=== PATIENT | male | born 1945 | race Caucasian/White ===

== ENCOUNTER 2016-07-22 11:22 | Observation (INO) | payer MEDICARE, OTHER ==
[~2016-07-22] VITALS: Ht 182.9 cm; Wt 84.1 kg
[~2016-07-22 11:22] MED LIST: ALDACTONE100 MG PO; BETAPACE80 MG PO; CARDIZEM CD120 MG PO; COLACE100 MG PO; FLOMAX0.4 MG PO; FOLIC ACID1 MG PO; FOLVITE-DPS1 MG PO; KLOR-CON20 MEQ PO; LASIX40 M1 PO; LYRICA50 MG PO; MAALOX DPS30 ML PO; MAGNESIUM400 MG PO; MULTIVITAMINS1 EAC1 PO; NITROSTAT0.4 MG SL; OCEAN NASAL MIS45 ML IH; SURFAK240 MG PO; TIKOSYN125 MCG PO; TYLENOL DPS325 MG PO; VITAMIN B1100 MG PO; XANAX0.5 MG PO; XARELTO20 MG PO
--- NOTE | 2016-07-23 16:41 | ER ---
ADMIT: 07/22/2016 RM/LOC: 420 [facility] MR#: [id number] [address] [address] DAYRON ESCAMILLA [address] [place] [address] Emergency Room Report SEX: M AGE: 70 : 1945 DATE: 07/22/2016 ADDENDUM: A 70-year-old white male coming in with palpitations. He has known history of atrial fibrillation with rapid rate. He seemed to be in that when he came in, really minimal complaints. I think he also had ablation. Dr. Shah also had come in to see him since he had an ablation through [facility] and the electroradiologist had wanted to see him today anyway. So at this time, Dr. Pablo delatorre will admit. Initial lab; blood work looked okay. This gentleman also has history of pancreatic cancer, status post Whipple about a month ago. He had been doing fine throughout this. CONDITION ON ADMISSION: Fair. Chinatn Costa MD/ kevin JOB #: [id number] CC: Pasquale Burr MD, Attending Physician Pasquale Burr MD, Family Physician
[2016-07-24] MEDS ORDERED: CALCIUM 600 +1 EA16 PO (19:11)
[2016-07-24] MEDS ORDERED: ASPIR 8181 MG PO (19:12)
[2016-07-24] MEDS ORDERED: NASADROPS15 ML NS (19:13)
[2016-10-15] MEDS ORDERED: FEOSOL-DPS325 MG PO (12:06)
[2016-10-15] MEDS ORDERED: LASIX DPS40 MG PO (12:07)
[2016-10-15] MEDS ORDERED: LOPRESSOR DPS50 MG PO (12:07)
[2016-10-15] MEDS ORDERED: CRESTOR10 MG PO (12:07)
[2016-10-15] MEDS ORDERED: LEXAPRO10 MG PO (12:07)
[2016-10-15] MEDS ORDERED: KLOR-CON M2020 ME1 PO (12:08)
[2016-10-15] MEDS ORDERED: TYLENOL DPS325 MG PO (12:08)
[2016-10-15] MEDS ORDERED: VITAMIN B12-FO1 EACH IM (12:08)
[2016-10-15] MEDS ORDERED: NEXIUM40 MG PO (12:08)
[2016-10-15] MEDS ORDERED: MAALOX DPS30 ML PO (12:09)
[2016-10-15] MEDS ORDERED: LACTULOSE20 GM/30 M PO (12:09)
[2016-10-15] MEDS ORDERED: NITROSTAT0.4 MG SL (12:10)
[2016-10-15] MEDS ORDERED: LANOXIN DPS0.125 MG PO (12:10)
[2016-10-15] MEDS ORDERED: TUMS DPS500 MG PO (12:11)
[2016-10-15] MEDS ORDERED: MIRALAX PACKET17 GM PO (12:11)
[2016-10-15] MEDS ORDERED: ULTRAM DPS50 MG PO (12:11)
[2016-10-15] MEDS ORDERED: MILK OF MAGNESI10 ML PO (12:11)
[2016-10-15] MEDS ORDERED: PRO-AMATINE2.5 MG PO (12:11)
== END 2016-07-23 13:35 | disposition home or self-care (01) ==
LOC: ER 11:22 → 4PCU 12:44
PROVIDERS: ADMIT Internal Medicine
DX: I48.4 Atypical atrial flutter (principal); C25.9 Malignant neoplasm of pancreas, unspecified; I25.10 Atherosclerotic heart disease of native coronary artery without angina pectoris; I25.5 Ischemic cardiomyopathy; I48.0 Paroxysmal atrial fibrillation; I47.2 Ventricular tachycardia; J44.9 Chronic obstructive pulmonary disease, unspecified; Z79.899 Other long term (current) drug therapy; Z79.82 Long term (current) use of aspirin; Z88.8 Allergy status to other drugs, medicaments and biological substances; Z98.890 Other specified postprocedural states; Z87.891 Personal history of nicotine dependence

== ENCOUNTER 2016-07-28 06:15 | Day surgery (SDC) | payer MEDICARE, OTHER ==
[~2016-07-28] VITALS: Ht 182.9 cm; Wt 88.1 kg
[~2016-07-28 06:15] MED LIST changes: +ASPIR 8181 MG PO; +CALCIUM 600 +1 EA16 PO; +NASADROPS15 ML NS
--- NOTE | 2016-08-10 08:53 | OR ---
ADMIT: 07/28/2016 RM/LOC: [facility] MR#: [id number] [address] [address] DAYRON ESCAMILLA [address] [place] [address] Operative/Delivery Room Report SEX: M AGE: 70 : 1945 SURGERY DATE: 07/28/2016 SURGEON: Pietro Rose MD PREPROCEDURE DIAGNOSIS: Pancreatic cancer. POSTPROCEDURE DIAGNOSIS: Pancreatic cancer. PROCEDURE: Left subclavian vein power port placement. INDICATIONS: The patient is a 70-year-old with pancreatic cancer presents for PowerPort placement for adjuvant chemotherapy. FINDINGS: Patient taken to the operating room, IV sedation was given. The chest and neck were prepped and draped in normal sterile fashion. The case was begun by injecting 1% lidocaine for local analgesia. An introducer needle was placed in a left subclavian vein, a wire was threaded under fluoroscopic guidance into the right ventricle. An Pwyjmi-V-Eeeg pocket was made with a #15 blade cautery and blunt finger dissection. A dilator and sheath were placed over a wire. Our catheter was cut to 18 cm and assembled. Catheter was then threaded through our sheath. Unfortunately catheter was heading into the opposite subclavian vein. I replaced the wire, cut about a 22 cm length catheter, used a replacement dilator sheath and unfortunately I was not able to work with my catheter and slid it back into the right atrium. So we got another kit, replaced our wire through our catheter. Cut our catheter 20 cm, reassembled, placed a dilator sheath over our a wire, threaded our catheter through our sheath under fluoroscopic guidance with the tip heading towards the right atrium into the mid subclavian vein. The catheter aspirated and flushed without difficulty, then was flushed with heparinized saline. The port was sutured to the pectoral fascia using 2-0 Prolene suture. The incision site was closed with interrupted 3-0 Vicryl subdermal sutures and running 4-0 Vicryl subcuticular skin stitch. The wound was cleaned and dried and dressed. Patient tolerated the procedure without difficulty, transferred to the recovery room in good condition. Pietro Rose MD/ kevin JOB #: [id number] CC: Pietro Rose, Attending Physician Jh Massey, Family Physician
[2016-10-15] MEDS ORDERED: FEOSOL-DPS325 MG PO (12:06)
[2016-10-15] MEDS ORDERED: LASIX DPS40 MG PO (12:07)
[2016-10-15] MEDS ORDERED: LEXAPRO10 MG PO (12:07)
[2016-10-15] MEDS ORDERED: LOPRESSOR DPS50 MG PO (12:07)
[2016-10-15] MEDS ORDERED: CRESTOR10 MG PO (12:07)
[2016-10-15] MEDS ORDERED: KLOR-CON M2020 ME1 PO (12:08)
[2016-10-15] MEDS ORDERED: TYLENOL DPS325 MG PO (12:08)
[2016-10-15] MEDS ORDERED: VITAMIN B12-FO1 EACH IM (12:08)
[2016-10-15] MEDS ORDERED: NEXIUM40 MG PO (12:08)
[2016-10-15] MEDS ORDERED: MAALOX DPS30 ML PO (12:09)
[2016-10-15] MEDS ORDERED: LACTULOSE20 GM/30 M PO (12:09)
[2016-10-15] MEDS ORDERED: LANOXIN DPS0.125 MG PO (12:10)
[2016-10-15] MEDS ORDERED: NITROSTAT0.4 MG SL (12:10)
[2016-10-15] MEDS ORDERED: PRO-AMATINE2.5 MG PO (12:11)
[2016-10-15] MEDS ORDERED: MILK OF MAGNESI10 ML PO (12:11)
[2016-10-15] MEDS ORDERED: MIRALAX PACKET17 GM PO (12:11)
[2016-10-15] MEDS ORDERED: ULTRAM DPS50 MG PO (12:11)
[2016-10-15] MEDS ORDERED: TUMS DPS500 MG PO (12:11)
== END 2016-07-28 10:55 | disposition home or self-care (01) ==
LOC: SSS 06:15
DX: C25.9 Malignant neoplasm of pancreas, unspecified (principal); I25.10 Atherosclerotic heart disease of native coronary artery without angina pectoris; I48.91 Unspecified atrial fibrillation; K21.9 Gastro-esophageal reflux disease without esophagitis; E78.00 Pure hypercholesterolemia, unspecified; Z87.891 Personal history of nicotine dependence; Z79.899 Other long term (current) drug therapy; Z98.890 Other specified postprocedural states; Z79.82 Long term (current) use of aspirin

== ENCOUNTER 2016-08-10 11:45 | Emergency (ER) | payer MEDICARE, OTHER ==
--- NOTE | 2016-08-26 15:23 | ER ---
ADMIT: 08/10/2016 RM/LOC: ER [facility] MR#: [id number] 2620 [facility] [address] [place] [phone] DAYRON ESCAMILLA [address] [place] [address] Emergency Room Report SEX: M AGE: 70 : 1945 DATE: 08/10/2016 ADDENDUM: A 70-year-old white male coming in with rapid heart rate. He has problems with paroxysmal atrial fibrillation, I think SVT, and ischemic cardiomyopathy. Also, has some atherosclerotic disease as well. He continues to kind of have problems with this. We tried to initially convert him with Adenocard because he looked like he actually was in SVT. That did not work. Finally gave him Cardizem, titrated him, then gave him 240 of Cardizem and he had rate control of like 79-83. He does have an occasional PVC. I do not think this is atrial fibrillation at this time, but again since he has had that before, definitely could have that, but sometimes he looks regular and other times he looks like an atrial fib as well. I did speak with MURIEL. We are going to increase his Lopressor to 50 b.i.d., 24-hour Holter, and then he will see them within a week. CONDITION ON DISCHARGE: Improved. Chintan Costa MD/ kevin JOB #: [id number] CC: Chintan Costa MD, Attending Physician UNKNOWN, Family Physician
[2016-10-15] MEDS ORDERED: FEOSOL-DPS325 MG PO (12:06)
[2016-10-15] MEDS ORDERED: LOPRESSOR DPS50 MG PO (12:07)
[2016-10-15] MEDS ORDERED: CRESTOR10 MG PO (12:07)
[2016-10-15] MEDS ORDERED: LASIX DPS40 MG PO (12:07)
[2016-10-15] MEDS ORDERED: LEXAPRO10 MG PO (12:07)
[2016-10-15] MEDS ORDERED: VITAMIN B12-FO1 EACH IM (12:08)
[2016-10-15] MEDS ORDERED: NEXIUM40 MG PO (12:08)
[2016-10-15] MEDS ORDERED: KLOR-CON M2020 ME1 PO (12:08)
[2016-10-15] MEDS ORDERED: TYLENOL DPS325 MG PO (12:08)
[2016-10-15] MEDS ORDERED: LACTULOSE20 GM/30 M PO (12:09)
[2016-10-15] MEDS ORDERED: MAALOX DPS30 ML PO (12:09)
[2016-10-15] MEDS ORDERED: NITROSTAT0.4 MG SL (12:10)
[2016-10-15] MEDS ORDERED: LANOXIN DPS0.125 MG PO (12:10)
[2016-10-15] MEDS ORDERED: PRO-AMATINE2.5 MG PO (12:11)
[2016-10-15] MEDS ORDERED: TUMS DPS500 MG PO (12:11)
[2016-10-15] MEDS ORDERED: MILK OF MAGNESI10 ML PO (12:11)
[2016-10-15] MEDS ORDERED: MIRALAX PACKET17 GM PO (12:11)
[2016-10-15] MEDS ORDERED: ULTRAM DPS50 MG PO (12:11)
== END 2016-08-10 16:07 | disposition home or self-care (01) ==
LOC: ER 11:45
DX: I48.0 Paroxysmal atrial fibrillation (principal); I47.1 Supraventricular tachycardia; I42.9 Cardiomyopathy, unspecified; I25.10 Atherosclerotic heart disease of native coronary artery without angina pectoris; Z85.07 Personal history of malignant neoplasm of pancreas; Z87.891 Personal history of nicotine dependence; Z88.8 Allergy status to other drugs, medicaments and biological substances

== ENCOUNTER → 2016-08-28 | Outpatient (CLI) | payer MEDICARE, OTHER ==
[~2016-08-28] MED LIST changes: +CARDIZEM CD DP120 MG PO; +COLACE-DPS100 MG PO; +COMPAZINE10 MG PO; +CRESTOR10 MG PO; +FEOSOL-DPS325 MG PO; +KLOR-CON M2020 ME1 PO; +LACTULOSE20 GM/30 M PO; +LANOXIN DPS0.125 MG PO; +LASIX DPS40 MG PO; +LEXAPRO10 MG PO; +LOPRESSOR DPS50 MG PO; +MILK OF MAGNESI10 ML PO; +MIRALAX PACKET17 GM PO; +NEXIUM40 MG PO; +NILSTAT SUSP DPS PO; +OXY IR DPS5 MG PO; +PRO-AMATINE2.5 MG PO; +ROCEPHIN DPS2 GM IV; +SPIRONOLACTONE25 MG PO; +TUMS DPS500 MG PO; +ULTRAM DPS50 MG PO; +VITAMIN B12-FO1 EACH IM
== END | disposition home or self-care (01) ==
LOC: RAD.S 10:19
DX: M79.605 Pain in left leg (principal); M79.89 Other specified soft tissue disorders; I82.402 Acute embolism and thrombosis of unspecified deep veins of left lower extremity

== ENCOUNTER 2016-09-05 08:23 | Inpatient (IN) | payer MEDICARE, OTHER ==
[~2016-09-05] VITALS: Ht 182.9 cm; Wt 98.4 kg
[~2016-09-05 08:23] MED LIST changes: -CARDIZEM CD DP120 MG PO; -COLACE-DPS100 MG PO; -COMPAZINE10 MG PO; -CRESTOR10 MG PO; -FEOSOL-DPS325 MG PO; -KLOR-CON M2020 ME1 PO; -LACTULOSE20 GM/30 M PO; -LANOXIN DPS0.125 MG PO; -LASIX DPS40 MG PO; -LEXAPRO10 MG PO; -LOPRESSOR DPS50 MG PO; -MILK OF MAGNESI10 ML PO; -MIRALAX PACKET17 GM PO; -NEXIUM40 MG PO; -NILSTAT SUSP DPS PO; -OXY IR DPS5 MG PO; -PRO-AMATINE2.5 MG PO; -ROCEPHIN DPS2 GM IV; -SPIRONOLACTONE25 MG PO; -TUMS DPS500 MG PO; -ULTRAM DPS50 MG PO; -VITAMIN B12-FO1 EACH IM
--- NOTE | 2016-09-05 18:29 | ER ---
ADMIT: 09/05/2016 RM/LOC: 407 [facility] MR#: [id number] [address] [address] DAYRON ESCAMILLA [address] [place] [address] Emergency Room Report SEX: M AGE: 70 : 1945 DATE: 09/05/2016 TIME: 0823 hours. Please refer to my T-sheet for complete H and P. HISTORY OF PRESENT ILLNESS: Briefly, the patient is a 70-year-old, comes in for general weakness, just not doing well, nauseous. He has a history of pancreatic cancer, status post a Whipple done in June of 2016. He said he just has not been feeling very well. PHYSICAL EXAMINATION: VITAL SIGNS: His blood pressure is 122/64, pulse 120s to 130s, respirations 30, temp 100.1, saturating 92%. GENERAL: He is in no acute distress. HEENT: He has a little bit of white plaque on his tongue. He has dried mucous membranes. LUNGS: Lungs are coarse. HEART: Irregularly irregular. Tachycardic. ABDOMEN: Soft. SKIN: No rash. EMERGENCY ROOM COURSE: We did the whole sepsis pathway. His chest x-ray revealed cardiomegaly, bibasilar atelectasis. His EKG was atrial fibrillation, rate 137. No hyperacute changes. CBC was normal except hemoglobin 10.2 platelets 62. Chemistries normal except glucose 114, phos 1.4, alkaline phosphatase 142, total bilirubin 1.8, lactate is 1.9. Cardiac enzymes, negative. PT was 14.7, PTT 37.8, INR 1.4. Blood cultures x2 were sent. We gave him a liter of normal saline bolus, a second liter and a gram of Tylenol, started the antibiotics. I talked to Dr. Harry, will admit. ASSESSMENT: 1. General weakness. 2. Dehydration. 3. Early sepsis. PLAN: Admit to the hospital under the care of Kamryn. Que Baeza MD/ kevin JOB #: [id number] CC: Jh Massey MD, Attending Physician Jh Massey MD, Family Physician
--- NOTE | 2016-09-06 13:57 | HP ---
ADMIT: 09/05/2016 RM/LOC: 407 [facility] MR#: [id number] 2620 [facility] [address] [place] [phone] DAYRON ESCAMILLA [address] [place] [address] History and Physical SEX: M AGE: 70 : 1945 DATE OF SERVICE: CHIEF COMPLAINT: Weakness. HISTORY OF PRESENT ILLNESS: This is a 70-year-old gentleman, who has a history of alcoholic liver disease, cirrhosis, atrial fibrillation, and ventricular tachycardia, as well as pancreatic cancer, status post Whipple. He recently had his first dose of chemotherapy one week ago. At that time, he was feeling pretty well. Unfortunately, midway through the week, he started to feel worse. Prior to the chemo, he was having some troubles with SVT and atrial fibrillation with RVR. He has had his Cardizem titrated up. He did ultimately have a Holter, which was okay, but then got chemo and started feeling worse. He has noted that he has not been able the eat well for the last three days. He has actually been gaining a lot of weight and getting a lots of fluid. He thinks his heart rates have been going a little faster then normal, although that does tend to happen with him. Overall, he just does not feel well. He had a mild low-grade temperature. Bowel seems to be working okay, but not great, but he reports he has not eaten well, but denies being constipated. He has had no diarrhea. PAST MEDICAL HISTORY: Includes: 1. Liver cirrhosis secondary to alcohol abuse. 2. Depression. 3. History of a left side DVT. 4. Hyperlipidemia. 5. Peripheral neuropathy secondary to B12 deficiency and alcohol. 6. History of left hemicolectomy for a tubulovillous adenoma. 7. Spinal stenosis with radiculopathy and chronic back pain. 8. He has had cholelithiasis which has been asymptomatic. 9. He has GERD. 10.Paroxysmal atrial fibrillation. 11.History of atrial flutter, status post ablation. 12.He has had ventricular tachycardia as well. PAST SURGICAL HISTORY: 1. He has had a tonsillectomy. 2. He has had a Whipple surgery. 3. Port placement, left upper chest. SOCIAL HISTORY: He is . He has 4 kids. He is retired from [employer]. He is quit smoking and drinking over 3 years ago now. FAMILY HISTORY: Mother of a brain aneurysm. Father in hunting accident. REVIEW OF SYSTEMS: Other complete review of systems obtained and negative except as above. PHYSICAL EXAMINATION: VITAL SIGNS: Temperature 99.7, pulse is 110 to 120s, ADMIT: 09/05/2016 RM/LOC: 407 [facility] MR#: [id number] [address] [address] DAYRON ESCAMILLA [address] [place] [address] History and Physical SEX: M AGE: 70 : 1945 respirations 20, blood pressure 119/70, oxygen saturation 93% on room air. GENERAL: This is a well-appearing 70-year-old gentleman. He is in no apparent distress. HEAD: Normocephalic and atraumatic. Pupils equal, round, and reactive to light and accommodation. Extraocular muscles intact. Throat is clear, but a little bit dry. NECK: Supple. HERAT: Irregularly irregular. LUNGS: Diminished bilaterally. ABDOMEN: Grossly distended. Nontender. It is soft. Tympanic to palpation. Positive bowel sounds. EXTREMITIES: He can move all extremities equally bilaterally. Lower extremities have 2+ pitting edema bilaterally. NEURO: Cranial nerves are intact. LABORATORY AND X-RAY DATA: White count 8.2, hemoglobin 10.5, platelets of 62, down from 237 five days ago. CMP; sodium 141, potassium 3.8, Chloride 106, bicarb 25, BUN 18, creatinine 1.0, phosphorus 1.4 which is low, bilirubin 1.8, albumin 2.4, alk phos 142. Troponin and CK are normal. Protime is 1.4. Chest x-ray, minimal opacities left lung base had been persistent since three weeks ago and cardiomegaly. Procalcitonin is 1.31. Urinalysis shows 1+ protein, trace blood, 4 red cells. ASSESSMENT: 1. Weakness. 2. Thrombocytopenia. 3. Edema. 4. History of pancreatic cancer, status post chemo. 5. Acute on chronic heart failure with reduced ejection fraction. 6. Atrial fibrillation with RVR. 7. History of ventricular tachycardia and coronary artery disease. PLAN: He is admitted to the hospital. I am going to replace his phosphorus. I will give him diltiazem IV in order to get his heart rate down. Once his heart rate is down, we will give him a little diuresis as well, and get him a Cardiology consult given his persistent arrhythmias associated heart failure especially in the setting of chemotherapy, and we will have PT and OT see and make sure we keep his strength up. Lopez Harry MD/ kevin JOB #: [id number] CC: Jh Massey, Attending Physician Jh Massey, Family Physician
--- NOTE | 2016-09-11 15:16 | CO ---
ADMIT: 09/05/2016 RM/LOC: 407 [facility] MR#: [id number] 2620 [facility] [address] [place] [phone] DAYRON CORBETT [address] [place] [address] Consultation SEX: M AGE: 70 : 1945 DATE OF CONSULTATION: 09/11/2016 ATTENDING PHYSICIAN: Jh Massey CONSULTING PHYSICIAN: Sofiya Richards APRN TIME IN: 1030. TIME OUT: 1110. REASON FOR CONSULTATION: Supportive care consultation was requested by Dr. Massey for discussion of goals for care and code status. HISTORY OF PRESENT ILLNESS: Mr. Corbett is a pleasant 70-year-old, male with history of alcoholic liver cirrhosis and a recent history of pancreatic cancer status post Whipple procedure. He received his 1st chemotherapy about a week ago. Unfortunately, he did not do well afterwards. He began developing increasing shortness of breath and did follow up with Cardiology who increased his Lasix. He continued to have issues prompting him to present to the emergency room on September 08 and at that time, he was found to be in atrial fibrillation with RVR. He has had issues with ascites and has undergone two paracenteses since admission. Currently, his chemotherapy is on hold until he further stabilizes. He now was having issues with acute renal failure and Nephrology is scheduled to see him today. Overall, due to his significant debility, supportive care consultation was requested to discuss goals for care and code status. In terms of advanced directives, the patient does have a power of securities attorney on file for healthcare. His son Riccardo Corbett is designated as his healthcare [id number]. He also reports that he has a living will. The patient is a full code at the time of assessment. In terms of symptoms, the patient reports overall he feels fairly comfortable. He is fatigued and weak. He states that his pain is better control over his abdomen. PAST MEDICAL HISTORY: Liver cirrhosis secondary to alcohol abuse, depression, history of a left side DVT, hyperlipidemia, peripheral neuropathy secondary to B12 deficiency and alcoholism, history of left hemicolectomy for a tubulovillous adenoma, spinal stenosis, cholelithiasis, GERD, paroxysmal atrial fibrillation, atrial flutter, ventricular tachycardia. SURGICAL HISTORY: Whipple procedure, tonsillectomy, and port placement. ALLERGIES: THE PATIENT IS ALLERGIC TO STATINS. CURRENT MEDICATIONS: Please see the patient's MAR for specific routes and dosages. His current medications are as follows: 1. Lopressor. ADMIT: 09/05/2016 RM/LOC: 407 [facility] MR#: [id number] [address] [place] [phone] DAYRON CORBETT [address] [place] [address] Consultation SEX: M AGE: 70 : 1945 2. Lactulose. 3. Cardizem. 4. Aldactone. 5. Oxycodone IR. 6. Nilstat. 7. Lexapro. 8. Crestor. 9. Heparin. 10.Compazine. 11.Maalox. 12.Tylenol. 13.Colace. 14.Nitrostat. 15.Albumin. SOCIAL HISTORY: The patient is not . He is . He has multiple children. He is retired from [employer]. He has a past smoking history but quit smoking and drinking over 3 years ago per the chart. FAMILY HISTORY: His mother of a brain aneurysm and his father in a hunting accident. FUNCTIONAL REVIEW: Prior to his hospital stay, the patient reports that he was living at home. He could ambulate and perform ADLs. His palliative performance scale prior to admission was around 70% to 80%. Currently, he is mostly sitting. He is requiring occasional assistance with ADLs. He can ambulate with a walker. His current palliative performance scale is around 50% to 60%. REVIEW OF SYSTEMS: A 10-point review of systems was completed and other than those pertinent positives and negatives mentioned the HPI, it is negative. PHYSICAL EXAMINATION: GENERAL: The patient is seen in the chair. He is in no acute distress. VITAL SIGNS: Temperature 97.2, pulse 62, respirations 17, blood pressure 116/55, oxygen 91% on room air. HEENT. Head is normocephalic. Pupils are equal, round, and reactive with a diameter of 3 mm bilaterally. Oral mucosa pink and moist with fair dentition. NECK: Supple. RESPIRATORY: Respirations are equal, nonlabored at rest. LUNGS: Diminished in the bases. CARDIOVASCULAR: Irregularly irregular. A 2+ bilateral lower extremity edema noted.GASTROINTESTINAL: Distended. Bowel sounds are positive. MUSCULOSKELETAL: Generalized weakness. INTEGUMENTARY: Skin turgor is fair. No rashes or wounds noted. NEUROLOGIC: He is tired, but alert and oriented x3. He will follow commands. PSYCHIATRIC: Calm and cooperative. No agitation or delirium noted. ADMIT: 09/05/2016 RM/LOC: 407 [facility] MR#: [id number] [address] [place] [phone] DAYRON CORBETT [address] [place] [address] Consultation SEX: M AGE: 70 : 1945 DIAGNOSTIC DATA: Sodium 138, potassium 3.6, BUN 22, creatinine 1.7, total protein is 6.4, albumin 2.8, alkaline phosphatase 356. AST 37, ALT 13, LDH 315, amylase 24, lipase 161. WBCs 42.08, hemoglobin 9.8, hematocrit 29.6, and platelets are 140. PT 12.2 and INR 1.17. IMPRESSION: 1. Physical debility. 2. Fatigue. 3. Malaise. 4. Abdominal pain. 5. Ascites. 6. Alcoholic cirrhosis. 7. Pancreatic cancer. 8. Acute renal failure. 9. Atrial fibrillation. 10.Palliative care. 11.The patient is a full code. PLAN OF TREATMENT: 1. I was able to meet with the patient at the bedside. I introduced myself and my role in the time ahead. We did review his status and goals. At this time, he is hopeful for improvement through his current issues with the hope of eventual chemotherapy. I did ask him if he has had any discussions with Oncology regarding his overall prognosis, and he states that he cannot recall this. He does agree to ongoing discussions pending his status in the time ahead. At this point, he directs ongoing continued care. 2. We did review code status including the burden versus benefit of full code status versus do not resuscitate/do not intubate status. At this time, he does direct a full code. However, he is not quite sure if this ADMIT: 09/05/2016 RM/LOC: 407 [facility] MR#: [id number] [address] [address] DAYRON CORBETT [address] [place] [address] Consultation SEX: M AGE: 70 : 1945 is what he would want. He is going to think about things in the upcoming days, and I have also given him handouts regarding CPR and ventilators for him to review in the days ahead as I am not available for the next two days over the weekend. 3. It does appear that he has healthcare [id number] work on file. We can potentially assist him with the completion of a POLST form pending his status and what his goals are in the time ahead. We would like to thank Dr. Massey for the invitation to participate in this patient's care. Total consultation time was 40 minutes from 1030 to 1110 with 25 minutes from 1035 to 11 o'clock spent [id number] with the patient discussing goals for care and providing counseling and support. We will continue to follow along in the care of this patient. Sofiya Richards APRN/ kevin JOB #: [id number] CC: Jh Massey, Attending Physician Jh Massey, Family Physician
[2016-09-17] MEDS ORDERED: CARDIZEM CD DP120 MG PO (13:57)
[2016-09-17] MEDS ORDERED: NILSTAT SUSP DPS PO (13:59)
[2016-09-17] MEDS ORDERED: COLACE-DPS100 MG PO (14:00)
[2016-09-17] MEDS ORDERED: ROCEPHIN DPS2 GM IV (14:00)
[2016-09-17] MEDS ORDERED: COMPAZINE10 MG PO (14:01)
[2016-09-17] MEDS ORDERED: OXY IR DPS5 MG PO (14:02)
[2016-09-17] MEDS ORDERED: SPIRONOLACTONE25 MG PO (14:07)
--- NOTE | 2016-09-18 11:04 | CO ---
ADMIT: 09/05/2016 RM/LOC: 407 [facility] MR#: [id number] 2620 [facility] [address] [place] [id number] DAYRON ESCAMILLA Christian[place] [address] [place] [id number] Consultation SEX: M AGE: 70 : 1945 DATE OF CONSULTATION: 09/11/2016 ATTENDING PHYSICIAN: Jh Massey CONSULTING PHYSICIAN: Herbert Aguirre MD REASON FOR CONSULTATION: Acute kidney injury. HISTORY OF PRESENT ILLNESS: The patient is a 70-year-old gentleman, who has multiple medical comorbidities outlined below. He was recently started on chemotherapy for his pancreatic cancer. He was admitted to the hospital with weakness. During this hospitalization, he has been having issues with atrial fibrillation with RVR for which Cardiology has been evaluating him. He has had rate control and his heart rates are better now. His blood pressures have been reasonable. His admission creatinine was around 1.4. His serum creatinine improved to around 1.0. However, over the last 3 days, his creatinine has risen again. His creatinine was 1.3 two days ago, 1.5 yesterday, and 1.7 this morning. His predominant complaint is that his abdomen feels bloated. He has had 2 paracentesis and had 650 mL taken out this morning. Last paracentesis was 4 days ago and had 1300 mL removed. He is getting in IV albumin infusion now. He also complains of some subjective dyspnea. He notes that his urine stream is poor and he has to force himself to urinate. Appetite is fair. He feels very weak otherwise and this is a generalized weakness. No focal complaints otherwise. REVIEW OF SYSTEMS: A complete review of systems is negative in detail except as mentioned in history of present illness above. PAST MEDICAL HISTORY: 1. Hepatic cirrhosis secondary to alcohol abuse. 2. Depression. 3. Coronary artery disease. 4. DVT. 5. Dyslipidemia. 6. Peripheral neuropathy. 7. Chronic alcoholism. 8. Pancreatic cancer status post Whipple's procedure with recent chemotherapy. 9. Spinal stenosis. 10.GERD. 11.Cholelithiasis. 12.Atrial fibrillation. 13.Atrial flutter. 14.Ventricular tachycardia. 15.Tonsillectomy. SOCIAL HISTORY: He lives alone in [place]. He is . He is retired. He quit smoking and drinking about 4 years ago. ADMIT: 09/05/2016 RM/LOC: 407 [facility] MR#: [id number] [address] [address] DAYRON ESCAMILLA [address] [place] [address] Consultation SEX: M AGE: 70 : 1945 FAMILY HISTORY: No family history of chronic kidney disease or renal replacement therapy. Mother had a stroke/brain aneurysm. ALLERGIES: STATINS. MEDICATIONS: Reviewed in the chart. PHYSICAL EXAMINATION: VITAL SIGNS: Temperature 97.2 Fahrenheit, pulse 62, blood pressure 116/55. In's and out's: 1872 in and 400 mL out. GENERAL: He is comfortable in a recliner. HEENT: Head is nontraumatic and normocephalic. Extraocular movements are intact. He has pale conjunctivae. No icterus. CHEST: Clear to auscultation. CVS: Irregular. S1, S2 heard. No rubs, murmurs, or gallops. ABDOMEN: Soft, distended. EXTREMITIES: 1+ edema, lower extremities. NEUROLOGIC: Alert, awake, and oriented x3. Moves all his extremities. PSYCHIATRIC: Affect and memory within normal limits. MUSCULOSKELETAL: Major joints within normal limits. Range of motion within normal limits. LABORATORY DATA: Reviewed. BMP with sodium 138, potassium 3.6, CO2 of 25, creatinine 1.7. Hemoglobin 9.8, white count is 42 and it was 3.3 yesterday. Calcium 8.6, albumin 2.8, magnesium 2.5. Urinalysis with 1+ protein, negative blood, and negative leukocyte esterase. This was on 05 of September. Urine studies from today are pending. Trend of serum creatinine is outlined in the HPI above. ADMIT: 09/05/2016 RM/LOC: 407 [facility] MR#: [id number] [address] [address] DAYRON ESCAMILLA [address] [place] [address] Consultation SEX: M AGE: 70 : 1945 ASSESSMENT AND PLAN: Acute kidney injury - the differential diagnosis for this is broad and includes prerenal, hepatorenal syndrome, intraabdominal hypertension, obstructive nephropathy. Intrinsic renal disease is less likely. I will check urine studies to evaluate further including a UA with microscopy and spot urine sodium and urine creatinine. I will ask for a Enamorado catheter considering his urinary symptoms. I will hold his renin angiotensin blockade for now and will use loop diuretics for volume management instead. We will titrate his diuretics depending upon his volume status and laboratories. Thank you for this consultation. Please do not hesitate to contact me with any questions. Herbert Aguirre MD/ kevin JOB #: [id number] CC: Jh Massey, Attending Physician Jh Massey, Family Physician
--- NOTE | 2016-09-22 13:05 | CO ---
ADMIT: 09/05/2016 RM/LOC: 407 [facility] MR#: [id number] [address] [address] ADYCHENTE DAYRON R [address] [place] [address] Consultation SEX: M AGE: 70 : 1945 DATE OF CONSULTATION: 09/05/2016 ATTENDING PHYSICIAN: Jh Massey CONSULTING PHYSICIAN: Sade Copeland MD HISTORY OF PRESENT ILLNESS: A very pleasant 70-year-old gentleman with a history of alcoholic liver cirrhosis and also the pancreatic cancer, status post Whipple's procedure, had a first round of chemo just last week. Following which, he started having worsening shortness of breath, worsening edema and he saw Dr. Burr in the office couple of days ago and his Lasix was titrated up. He came to the ER in the last few hours with worsening weakness and he was noted to be in atrial fibrillation with rapid ventricular response and he was admitted for further evaluation and management. He has a history of atrial fibrillation and atrial flutter in the past and he is not a candidate for chronic anticoagulation because of the cirrhosis of the liver and also the pancreatic cancer. He states that he did not have any diarrhea or he did not have any constipation and he was noted to be having a mild grade temperature and he was started on IV antibiotics also. His baseline cardiac condition is he has had history of atrial flutter ablation in the past and he has had a history of atrial fibrillation in the past and most recently 5 months ago, his ejection fraction was noted to be normal, EF of 55%, however, has moderate tricuspid regurgitation. Most recent Holter shows he was in atrial flutter with variable response and his most recent stress test was more than a year ago, looks like nonischemic. PAST MEDICAL HISTORY: 1. History of liver cirrhosis secondary to chronic alcohol abuse. 2. History of left-sided DVT. 3. History of pancreatic cancer. 4. 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 5. History of chronic back pain secondary to spinal stenosis. 6. Gastroesophageal reflux. 7. Chronic depression. PAST SURGICAL HISTORY: History of tonsillectomy, Whipple's surgery, hemicolectomy surgery, and also the port placement for the chemotherapy. SOCIAL HISTORY: He is , has 4 kids. He quit smoking and drinking almost 3 years ago. FAMILY HISTORY: History of brain aneurysms in the mother and father of natural . PRESENT MEDICATIONS: He is on include: 1. Aspirin 81 once a day. 2. Cardizem CD 180 once a day. 3. Crestor 20 once a day. ADMIT: 09/05/2016 RM/LOC: 407 [facility] MR#: [id number] [address] [address] DAYRON ESCAMILLA [address] [place] [address] Consultation SEX: M AGE: 70 : 1945 4. Dexamethasone 8 mg three times a day. 5. Lasix 80 twice a day. 6. Lexapro. 7. Lopressor 75 mg twice a day. 8. Potassium supplementation. 9. Ferrous sulfate. REVIEW OF THE SYSTEMS: All the 12-point systems review was performed in detail except for the points mentioned in the history of present illness, all other systems reviewed, essentially negative. PHYSICAL EXAM: VITAL SIGNS: Blood pressure of 119/70, heart rate of 120, irregularly irregular. No distress. HEENT: Atraumatic and normocephalic skull. Bilateral pupils are equal, reactive to light normal. Extraocular movements intact. Slight amount of pallor is there. CARDIOVASCULAR: S1, S2 irregularly irregular. CHEST: Bilateral air entry is present. ABDOMEN: Looks like he has gross ascites. EXTREMITIES: He has 2+ pitting edema. NEUROLOGICAL: Intact. No focal deficits. LABORATORY DATA: White count of 8.2, hemoglobin of 10, platelet count of 62. Sodium and potassium of 141 and 3.8, chloride and bicarb of 106 and 25. BUN and creatinine of 18 and 1.0, bilirubin of 1.8. ASSESSMENT AND PLAN: 1. Atrial fibrillation with rapid ventricular response. 2. History of atrial flutter. 3. History of pancreatic cancer, status post recent chemo with worsening of his pancytopenia numbers. 4. Probably more of third spacing rather than intravascularly overloaded, so ADMIT: 09/05/2016 RM/LOC: 407 [facility] MR#: [id number] [address] [address] VANE ESCAMILLAVANDANA Villeda [address] [place] [address] Consultation SEX: M AGE: 70 : 1945 the plan is to gently diurese him and he may benefit from gentle paracentesis and giving him IV albumin since his albumin level is 2.4, which might be making his edema worse. He is not a candidate for amiodarone because of cirrhosis of the liver, so I would like to go up on the dose of the beta jairon and add digoxin to it and try to see if that controls the rate. 5. At this point of time, it looks like his atrial fibrillation and rapid ventricular response is probably secondary to underlying multiple other things going on. I will restart his Cardizem also and try to wean his IV Cardizem by tomorrow. Thank you again for the consult, and I will be more than happy to follow him up during his hospital stay in taking care of this pleasant gentleman. Sade Copeland MD/ kevin JOB #: [id number] CC: Jh Massey, Attending Physician Jh Massey, Family Physician
--- NOTE | 2016-09-25 09:30 | DS ---
ADMIT: 09/05/2016 RM/LOC: 407 [facility] MR#: [id number] [address] [address] DAYRON ESCAMILLA [address] [place] [address] Discharge Summary SEX: M AGE: 70 : 1945 ADMISSION DATE: 09/05/2016 DISCHARGE DATE: 09/16/2016 DISCHARGE DIAGNOSES: 1. Weakness, resolved. 2. Atrial fibrillation with RVR (rapid ventricular rate)/atrial flutter, improved. 3. Pancreatic carcinoma status post pancreatectomy on current chemotherapy. 4. History of coronary disease. 5. History of ventricular tachycardia. 6. History of cirrhosis secondary to alcoholism with known portal hypertension. 7. Pancytopenia, resolved. 8. Leukocytosis likely secondary to abdominal wall cellulitis. 9. Acute renal failure, resolving. 10.Bilateral pleural effusions, transudative. 11.Hypokalemia, resolved. CONSULTATIONS: 1. Cardiology with [facility]. 2. Supportive Care. 3. Nephrology. REASON FOR ADMISSION: A 70-year-old gentleman with alcoholic liver disease, cirrhosis, portal hypertension, atrial fibrillation, coronary disease, pancreatic cancer on chemo presented to [facility] emergency room on the day of admission just with weakness and not feeling well. Elevated heart rates. Had been having some issues with fluid retention, and he was admitted for further evaluation and treatment. For complete details, please see H and P dictated on the day of admission. HOSPITAL COURSE: Patient was admitted to 4th floor tele bed. Was started on a Cardizem drip for rate control and Cardiology saw the patient. His potassium was replaced. He was noted to be thrombocytopenic at that time. Cardiology saw the patient and started him on digoxin and oral Cardizem and a little bit of Lopressor and tried to titrate him off his Cardizem drip. He was set up for paracentesis as he did have a lot of abdominal fullness as well. There were increased cells and did look exudative. There was question whether there was possibly malignant cells. There were cells but were also favored reactive cells. Cultures ended up being negative, but he was started on antibiotics with an increase in neutrophils, but there was still question if they were possibly cancer cells in there that pathology is still pending at the time of this dictation. He was given IV diuretics. We attempted to get him back on some Aldactone, and the patient did develop some acute renal failure. Nephrology was consulted. With his pancytopenia, Oncology, who had been seeing the patient peripherally also started him on some Granix. He did transiently require a little bit of oxygen and chest x-ray did show bilateral pleural effusions. He was also noted to develop leukocytosis and there was some noted abdominal cellulitis. His paracentesis with the increased white ADMIT: 09/05/2016 RM/LOC: 407 [facility] MR#: [id number] [address] [place] [id number] FRANCINE DAYRON Christiana [facility] [place] [address] Discharge Summary SEX: M AGE: 70 : 1945 count, as mentioned, he was started on antibiotics. He underwent CT scanning of the chest that did show bilateral pleural effusions. No obvious pneumonia was noted. His white count trended down nicely. He never was febrile. Pleural fluid looked transudative. No signs of pneumonia. He was obviously weaned to room air. No cough had been noted, no shortness of breath had been noted. Dr. Aguirre kept him on some IV diuretics, Lasix. We held his Aldactone. Supportive Care saw the patient. He did decide to be a DNR/DNI. His creatinine started to come down. It maxed out at 1.7 at discharge. It did come down into the 1.3 or 1.4 range with edema having improved. He ambulated and ate and was thought to be just a little weak overall still from chemotherapy and everything. Seen by Social Work and plans were made to admit him to [facility] for rehab, PT and OT. As mentioned, he tolerated oral diuretics. We did back a low dose of Aldactone and as mentioned was thought to be ready for discharge on 09/16. DISCHARGE MEDICATIONS: Found on discharge medication list. DISCHARGE DIET: A 2 g sodium cardiac diet as tolerated. 2 L fluid restriction. DISCHARGE ACTIVITY: Per Physical Therapy and Occupational Therapy. He will be seen by them at [facility]. He will be seen by Dr. Aguirre on October 29. He will be seen by me on the or 22 of September, and they will call me from [facility] with any other questions or concerns. Jh Massey MD/ driss JOB #: [id number] CC: Jh Massey MD, Attending Physician Jh Massey MD, Family Physician
[2016-10-15] MEDS ORDERED: FEOSOL-DPS325 MG PO (12:06)
[2016-10-15] MEDS ORDERED: CRESTOR10 MG PO (12:07)
[2016-10-15] MEDS ORDERED: LOPRESSOR DPS50 MG PO (12:07)
[2016-10-15] MEDS ORDERED: LASIX DPS40 MG PO (12:07)
[2016-10-15] MEDS ORDERED: LEXAPRO10 MG PO (12:07)
[2016-10-15] MEDS ORDERED: TYLENOL DPS325 MG PO (12:08)
[2016-10-15] MEDS ORDERED: KLOR-CON M2020 ME1 PO (12:08)
[2016-10-15] MEDS ORDERED: NEXIUM40 MG PO (12:08)
[2016-10-15] MEDS ORDERED: VITAMIN B12-FO1 EACH IM (12:08)
[2016-10-15] MEDS ORDERED: LACTULOSE20 GM/30 M PO (12:09)
[2016-10-15] MEDS ORDERED: MAALOX DPS30 ML PO (12:09)
[2016-10-15] MEDS ORDERED: LANOXIN DPS0.125 MG PO (12:10)
[2016-10-15] MEDS ORDERED: NITROSTAT0.4 MG SL (12:10)
[2016-10-15] MEDS ORDERED: MIRALAX PACKET17 GM PO (12:11)
[2016-10-15] MEDS ORDERED: PRO-AMATINE2.5 MG PO (12:11)
[2016-10-15] MEDS ORDERED: TUMS DPS500 MG PO (12:11)
[2016-10-15] MEDS ORDERED: ULTRAM DPS50 MG PO (12:11)
[2016-10-15] MEDS ORDERED: MILK OF MAGNESI10 ML PO (12:11)
== END 2016-09-16 13:12 | DRG 291 ==
LOC: ER 08:23 → 4PCU 10:30
PROVIDERS: ADMIT Internal Medicine
PROC: 30233R1 Transfusion of Nonautologous Platelets into Peripheral Vein, Percutaneous Approach (ICD-10-PCS; principal; 2016-09-07)
PROC: 0W9G3ZX Drainage of Peritoneal Cavity, Percutaneous Approach, Diagnostic (ICD-10-PCS; principal; 2016-09-07)
PROC: 0W9G3ZX Drainage of Peritoneal Cavity, Percutaneous Approach, Diagnostic (ICD-10-PCS; 2016-09-11)
PROC: 0W993ZX Drainage of Right Pleural Cavity, Percutaneous Approach, Diagnostic (ICD-10-PCS; 2016-09-14)
DX: I50.33 Acute on chronic diastolic (congestive) heart failure (principal); D61.810 Antineoplastic chemotherapy induced pancytopenia; N17.9 Acute kidney failure, unspecified; J91.8 Pleural effusion in other conditions classified elsewhere; B37.0 Candidal stomatitis; C25.9 Malignant neoplasm of pancreas, unspecified; K76.6 Portal hypertension; I48.1 Persistent atrial fibrillation; L03.311 Cellulitis of abdominal wall; I48.92 Unspecified atrial flutter; K70.31 Alcoholic cirrhosis of liver with ascites; E87.6 Hypokalemia; E53.8 Deficiency of other specified B group vitamins; I36.1 Nonrheumatic tricuspid (valve) insufficiency; G62.1 Alcoholic polyneuropathy; F32.9 Major depressive disorder, single episode, unspecified; E78.5 Hyperlipidemia, unspecified; I25.10 Atherosclerotic heart disease of native coronary artery without angina pectoris; M48.00 Spinal stenosis, site unspecified; K80.20 Calculus of gallbladder without cholecystitis without obstruction; K21.9 Gastro-esophageal reflux disease without esophagitis; Z86.718 Personal history of other venous thrombosis and embolism; Z87.891 Personal history of nicotine dependence; Z79.82 Long term (current) use of aspirin; Z66 Do not resuscitate

== ENCOUNTER 2016-09-11 11:42 | Inpatient (IN) | payer MEDICARE, OTHER ==
[~2016-09-11] VITALS: Ht 182.9 cm; Wt 98.5 kg
--- NOTE | ~2016-09-11 | PNE ---
"ADMIT DATE: 09/16/16 ROOM#: [id number] | MR#: [id number] | | [facility] | [place], [place] [address] | [facility] [address] | | PHYSICAL THERAPY SEX: M AGE: 71 : [birth year] | PROGRESS NOTE EXTENSION Rehab Plan of Care Update Dr. Massey, This letter is regarding your patient Brooks Corbett at [facility], with an original goal date of 09/30/16. The patient has progressed, but would benefit from further safety with gait, transfers, and ADL training to allow for increased safety. We plan to extend this patient until 10/07/16 for daily treatment sessions. PT 5x/week OT 5x/week Please let me know if you have any questions or concerns with these goals or patient's plan of care. Thank you, Swati Doll, PT, DPT VINICIO Mora-Bianca Therapist Signature: Date: Therapist Signature: Date: Physician Signature: Date: "
--- NOTE | 2016-09-16 21:09 | NUR ---
PATIENT COMPLAINS OF CHILLS AND STATES HE HAS HAD THEM FOR A COUPLE OF HOURS. TYMPANIC TEMPERATURE 98.3 AT THIS TIME. PRN TYLENOL GIVEN WELL A WARM BLANKET. WILL CONTINUE TO MONITOR.
[2016-09-17] MEDS ORDERED: CARDIZEM CD DP120 MG PO (13:57)
[2016-09-17] MEDS ORDERED: NILSTAT SUSP DPS PO (13:59)
[2016-09-17] MEDS ORDERED: COLACE-DPS100 MG PO (14:00)
[2016-09-17] MEDS ORDERED: ROCEPHIN DPS2 GM IV (14:00)
[2016-09-17] MEDS ORDERED: COMPAZINE10 MG PO (14:01)
[2016-09-17] MEDS ORDERED: OXY IR DPS5 MG PO (14:02)
[2016-09-17] MEDS ORDERED: SPIRONOLACTONE25 MG PO (14:07)
--- NOTE | 2016-09-22 10:20 | NUR ---
INTERVIEW FOR MDS 3.0-PT. IS ALERT, ORIENTED. KNOWS THE YEAR, MONTH AND DAY OF THE WEEK, PT. CAN REPEAT AND RECALL ALL THREE WORDS WITHOUT CUES. PT. COGNTION IS INTACT. PT. STATES PRIOR TO ADMISSION TO ACUTE CARE AND SNU, HE WAS INDEPENDENT AT HOME, DROVE FOR HIMSELF AND WAS SELF SUFFICENT IN ALL ADLS AND MOBILITY NEEDS. SINCE HOSPITAL AND BEING HERE, HE NEEDS SOME HELP WITH HIS SOCKS, CANNOT BEND OVER VERY WELL, LEGS ARE STIFF. INDEPENDENT IN THE BATHROOM. FEEDS HIMSELF AND ASSIST WITH AMBULATING. PT. STATES SOMETIMES HE IS ANXIOUS AND A LITTLE DEPRESSED AT TIMES, MAINLY DUE TO HAVING CANCER. SLEEPS PRETTY GOOD, STATES WHEN HE SLEEPS HE SLEEPS AND WHEN HE DOSENT HE DOSENT. STATES APPETITE IS GETTING BETTER AND THE FOOD TASTE GOOD HERE. PT. STATES ITS NOT IMPORTANT TO CHOOSE THE CLOTHES HE WEARS OR USE THE PHONE IN PRIVATE. ENJOYS HAVING A SHOWER. LIKES TO CHOOSE THE TIME HE GOES TO BED. NOT IMPORTANT TO LOCK UP HIS PERSONEL ITEMS AND ENJOYS SNACKS INBETWEEN MEALS. READS THE NEWSPAPER EVERY DAY AND LIKES TO KEEP UP WITH THE NEWS, DOES NOT CARE THAT MUCH TO LISTEN TO MUSIC. DOES NOT CARE THAT MUCH FOR PETS AND IS LIKES TO DO THINGS ALONE, NOT IN GROUPS. LIKES TO GET FRESH AIR. HIS GOAL IS TO BE HOME, HE HAS 5 CHILDREN AND STATES THEY ARE GOING TO TAKE TURNS HELPING ME IF I NEED. STATES HIS PAIN AT THE HIGHEST HAS BEEN A 4, MAKING IT HARD TO SLEEP OR COMPLETE ANY OF HIS DAILY THINGS. STATES THE PAIN PILLS HELP. BORN IN [facility], GRADUATED COLLEGE WITH A DRAFTING CAREER, WENT TO WORK FOR [employer] AND ONLY DID THAT FOR A YEAR, GOT [employer] FOR [place] AND RETURNED. HE WORKED FOR A [employer]. HE IS , HAS 5 CHILDREN WITH A SET OF TWINS, HE HAS 8 GRAND CHILREN AND 8 GREAT GRANDCHILDREN. STATES HE HAS HAD GOOD CARE HERE, LIKES STAYING HERE. ASSISTED PT. OUT OF RECLINER AND WHEN LOWERED THE FOOT REST, HIS LEGS HURT. ASSISTED TO BATHROON AND CONTACTED RN FOR PAIN PILLS FOR PT. THANKED HIM FOR THE NICE VISIT AND WISHED HIM A GOOD DAY.
--- NOTE | 2016-09-25 16:00 | NUR ---
PATIENT NOTE POLST FORM WAS COMPLETED THIS A.M. AND SENT TO DR. CASTILLO FOR SIGNATURE. THE FORM HAS RETURNED SIGNED AND IT IS CURRENTLY ON THE CHART. DAYRON ALONG WITH HIS SON MATEO (BY SPEAKER PHONE), ZAHRA DAVID AND MYSELF PRESENT TO COMPLETE THE FORM. DAYRON REMAINS ALERT AND ORIENTED. HIS GOAL/PLAN IS TO RETURN TO HOME WHEN STRONGER AND ABLE TO CARE FOR HIMSELF, HE DOES LIVE ALONE. HE IS HERE UNDER HIS MEDICARE BENEFITS WITH THERAPY AND [employer] THE SKILLED SERVICES. SOCIAL WORK WILL FOLLOW AND ASSIST WITH D/C PLANNING WHEN APPROPRIATE AND WITH CONCERNS OR NEEDS THAT MAY ARISE.
[2016-10-15] MEDS ORDERED: FEOSOL-DPS325 MG PO (12:06)
[2016-10-15] MEDS ORDERED: LEXAPRO10 MG PO (12:07)
[2016-10-15] MEDS ORDERED: LOPRESSOR DPS50 MG PO (12:07)
[2016-10-15] MEDS ORDERED: CRESTOR10 MG PO (12:07)
[2016-10-15] MEDS ORDERED: LASIX DPS40 MG PO (12:07)
[2016-10-15] MEDS ORDERED: VITAMIN B12-FO1 EACH IM (12:08)
[2016-10-15] MEDS ORDERED: TYLENOL DPS325 MG PO (12:08)
[2016-10-15] MEDS ORDERED: KLOR-CON M2020 ME1 PO (12:08)
[2016-10-15] MEDS ORDERED: NEXIUM40 MG PO (12:08)
[2016-10-15] MEDS ORDERED: LACTULOSE20 GM/30 M PO (12:09)
[2016-10-15] MEDS ORDERED: MAALOX DPS30 ML PO (12:09)
[2016-10-15] MEDS ORDERED: LANOXIN DPS0.125 MG PO (12:10)
[2016-10-15] MEDS ORDERED: NITROSTAT0.4 MG SL (12:10)
[2016-10-15] MEDS ORDERED: MILK OF MAGNESI10 ML PO (12:11)
[2016-10-15] MEDS ORDERED: TUMS DPS500 MG PO (12:11)
[2016-10-15] MEDS ORDERED: PRO-AMATINE2.5 MG PO (12:11)
[2016-10-15] MEDS ORDERED: ULTRAM DPS50 MG PO (12:11)
[2016-10-15] MEDS ORDERED: MIRALAX PACKET17 GM PO (12:11)
== END 2016-10-02 10:10 | disposition short-term general hospital (02) | DRG 291 ==
LOC: SNU 11:42
PROVIDERS: ADMIT Internal Medicine
PROC: F08Z4ZZ Home Management Treatment (ICD-10-PCS; principal; 2016-09-16)
PROC: F07Z9ZZ Gait Training/Functional Ambulation Treatment (ICD-10-PCS; principal; 2016-09-16)
DX: I50.32 Chronic diastolic (congestive) heart failure (principal); D61.810 Antineoplastic chemotherapy induced pancytopenia; N17.9 Acute kidney failure, unspecified; C25.9 Malignant neoplasm of pancreas, unspecified; I48.1 Persistent atrial fibrillation; I48.92 Unspecified atrial flutter; K76.6 Portal hypertension; B37.0 Candidal stomatitis; L03.311 Cellulitis of abdominal wall; K70.31 Alcoholic cirrhosis of liver with ascites; E53.8 Deficiency of other specified B group vitamins; G62.1 Alcoholic polyneuropathy; F32.9 Major depressive disorder, single episode, unspecified; K21.9 Gastro-esophageal reflux disease without esophagitis; M48.00 Spinal stenosis, site unspecified; I25.10 Atherosclerotic heart disease of native coronary artery without angina pectoris; K80.20 Calculus of gallbladder without cholecystitis without obstruction; I36.1 Nonrheumatic tricuspid (valve) insufficiency; E78.5 Hyperlipidemia, unspecified; Z87.891 Personal history of nicotine dependence; Z86.718 Personal history of other venous thrombosis and embolism; Z66 Do not resuscitate

== ENCOUNTER 2016-10-06 11:01 | Inpatient (IN) | payer MEDICARE, OTHER ==
[~2016-10-06] VITALS: Ht 182.9 cm; Wt 80.8 kg
[~2016-10-06 11:01] MED LIST changes: +CARDIZEM CD DP120 MG PO; +COLACE-DPS100 MG PO; +COMPAZINE10 MG PO; +NILSTAT SUSP DPS PO; +OXY IR DPS5 MG PO; +ROCEPHIN DPS2 GM IV; +SPIRONOLACTONE25 MG PO
--- NOTE | 2016-10-06 22:57 | NUR ---
pt says iv site lt forearm been tender past couple days - site little pink
--- NOTE | 2016-10-09 14:10 | NUR ---
PATIENT NOTE DAYRON HAS BEEN ADMITTED BACK TO [facility] FOLLOWING A SHORT STAY AT [facility]. HE HAS USED 16 MEDICARE DAYS SO WHEN HE RETURNED ON 10/06 HE WAS ON DAY 17 AND HE IS AWARE OF THIS. HE IS A MEDICARE SKILLED PATIENT WITH PHYSICAL AND OCCUPATIONAL THERAPY THE SKILLED SERVICES. HIS GOAL/PLAN IS TO RETURN TO HIS HOME HERE IN [place]. DAYRON IS ALERT, ORIENTED AND PLEASANT 70 YEAR OLD TO VISIT WITH. HIS FAMILY IS SUPPORTIVE BUT DO LIVE IN OTHER TOWNS. SOCIAL WORK TO FOLLOW AND ASSIST WITH D/C NEEDS AND PLANNING.
--- NOTE | 2016-10-14 14:40 | NUR ---
PATIENT NOTE OSCAR WAS D/C TO HIS HOME THIS AFTERNOON THIS IS PER HIS REQUEST HE WAS AWARE OF THE THERAPY GOAL DATE OF 10/21. HE DID SEE [address] CASTILLO ON 10/12 AND CAME BACK WITH D/C TO HOME ORDERS. [facility] WAS ORDERED, OPTIONS GIVEN AND HE CHOSE [facility], REFERRAL CALLED INTO [facility]. OSCAR AND FAMILY ASKED FOR LIFELINE AND MEALS ON WHEELS AND I ARRANGED FOR BOTH OF THESE SERVICES TO BEGIN. LIFELINE WILL BE INSTALLED TODAY AT 3PM AND MEALS ON WHEELS WILL BEGIN SUNDAY 10/15. OSCAR REMAINS ALERT AND ORIENTED. HE VOICES NO CONCERNS WITH HIS CARE OR STAY. HE HAS [employer] CARD STAPLED TO HIS D/C PAPERS SO HE CAN CALL WITH QUESTIONS OR CONCERNS.
[2016-10-15] MEDS ORDERED: FEOSOL-DPS325 MG PO (12:06)
[2016-10-15] MEDS ORDERED: LASIX DPS40 MG PO (12:07)
[2016-10-15] MEDS ORDERED: LEXAPRO10 MG PO (12:07)
[2016-10-15] MEDS ORDERED: CRESTOR10 MG PO (12:07)
[2016-10-15] MEDS ORDERED: LOPRESSOR DPS50 MG PO (12:07)
[2016-10-15] MEDS ORDERED: NEXIUM40 MG PO (12:08)
[2016-10-15] MEDS ORDERED: KLOR-CON M2020 ME1 PO (12:08)
[2016-10-15] MEDS ORDERED: VITAMIN B12-FO1 EACH IM (12:08)
[2016-10-15] MEDS ORDERED: TYLENOL DPS325 MG PO (12:08)
[2016-10-15] MEDS ORDERED: MAALOX DPS30 ML PO (12:09)
[2016-10-15] MEDS ORDERED: LACTULOSE20 GM/30 M PO (12:09)
[2016-10-15] MEDS ORDERED: LANOXIN DPS0.125 MG PO (12:10)
[2016-10-15] MEDS ORDERED: NITROSTAT0.4 MG SL (12:10)
[2016-10-15] MEDS ORDERED: MILK OF MAGNESI10 ML PO (12:11)
[2016-10-15] MEDS ORDERED: TUMS DPS500 MG PO (12:11)
[2016-10-15] MEDS ORDERED: ULTRAM DPS50 MG PO (12:11)
[2016-10-15] MEDS ORDERED: MIRALAX PACKET17 GM PO (12:11)
[2016-10-15] MEDS ORDERED: PRO-AMATINE2.5 MG PO (12:11)
== END 2016-10-14 13:00 | disposition home health service (06) | DRG 308 ==
LOC: SNU 11:01
PROVIDERS: ADMIT Internal Medicine
PROC: F07Z9ZZ Gait Training/Functional Ambulation Treatment (ICD-10-PCS; principal; 2016-10-06)
PROC: F08Z4ZZ Home Management Treatment (ICD-10-PCS; principal; 2016-10-06)
DX: I48.0 Paroxysmal atrial fibrillation (principal); D61.810 Antineoplastic chemotherapy induced pancytopenia; I50.32 Chronic diastolic (congestive) heart failure; C25.9 Malignant neoplasm of pancreas, unspecified; G62.1 Alcoholic polyneuropathy; K70.31 Alcoholic cirrhosis of liver with ascites; E53.8 Deficiency of other specified B group vitamins; K21.9 Gastro-esophageal reflux disease without esophagitis; I48.92 Unspecified atrial flutter; F32.9 Major depressive disorder, single episode, unspecified; I36.1 Nonrheumatic tricuspid (valve) insufficiency; E78.5 Hyperlipidemia, unspecified; I25.10 Atherosclerotic heart disease of native coronary artery without angina pectoris; M48.00 Spinal stenosis, site unspecified; K80.20 Calculus of gallbladder without cholecystitis without obstruction; Z86.718 Personal history of other venous thrombosis and embolism; Z87.891 Personal history of nicotine dependence; Z79.82 Long term (current) use of aspirin; Z66 Do not resuscitate